=== PATIENT | female | born 1935 | race Caucasian/White ===

== ENCOUNTER 2020-12-30 18:03 | Inpatient (IN) | payer MEDICARE, BC ==
[~2020-12-30] VITALS: Ht 157.5 cm; Wt 41.3 kg
[2020-12-30] MEDS ORDERED: ELIQUIS (18:11)
[2020-12-30 18:48] LABS: HEMATOCRIT 31.6 % (31.2-41.9); MEAN CORPUSCULAR HEMOGLOBIN 34.3 uug (24.7-32.8); MEAN CORPUSCULAR VOLUME 101.3 fL (75.5-95.3); PLATELET COUNT (AUTO) 126 K/uL (179-408)
[2020-12-30 18:52] LABS: CARBON DIOXIDE 26 mmol/L (21-32); CHLORIDE 107 mmol/L (98-107); GLUCOSE 101 mg/dL (74-106); POTASSIUM 4.1 mmol/L (3.5-5.1); UREA NITROGEN, BLOOD 53 mg/dL (7-18)
--- NOTE | 2020-12-30 18:53 | NUR ---
Pending MD's evaluation@this time, the blood was drawn by lab mixer attendant. EKG done, patient is on continuous cardiac, BP & Spo2 monitors with alarms set, on & audible. Received patient AOx3, MCGUIRE, respiration:easy, denies chest pains, skin warm & dry. Comfort and safety measures maintained.
[2020-12-30 19:09] LABS: ALANINE AMINOTRANSFERASE 22 U/L (14-59); ALKALINE PHOSPHATASE 68 U/L (50-136); ASPARTATE AMINOTRANSFERASE 28 U/L (15-37); BILIRUBIN,DIRECT < 0.1 mg/dL (0.0-0.2); BILIRUBIN,TOTAL 0.4 mg/dL (0.2-1.0); TOTAL PROTEIN, SERUM 6.4 g/dL (6.4-8.2)
--- NOTE | 2020-12-30 19:09 | NUR ---
Patient moved to room 1A from room 2A per foam charger Adrian, still for MD's evaluation.
--- NOTE | 2020-12-30 19:14 | NUR ---
FRANCOISAR to drying and winding supervisor Adrian.
[2020-12-30] MEDS ORDERED: ASPIRIN 81 MG TAB.CHEW PO ONE (21:15)
--- NOTE | 2020-12-30 21:20 | NUR ---
Dr Srivastava speaking with Janeth Vital APPEALS REFEREE jump iron machine presser for [facility].
[2020-12-30] MEDS ORDERED: ACETAMINOPHEN 325 MG TABLET PO PRN (21:30)
[2020-12-30] MEDS ORDERED: MAGNESIUM HYDROXIDE 30 ML LIQUID UDC PO PRN (21:30)
[2020-12-30] MEDS ORDERED: Z GUARD REMEDY PASTE 57 GM TUBE TOP PRN (21:30)
[2020-12-30] MEDS ORDERED: ONDANSETRON 4 MG/2 ML VIAL IV PRN (21:30)
--- NOTE | 2020-12-30 21:40 | NUR ---
Janeth Vital LIVESTOCK COUNTER here to eval patient.
--- NOTE | 2020-12-30 22:42 | NUR ---
Transfered to 3rd floor via gurny with no distress noted.
--- NOTE | 2020-12-30 22:45 | NUR ---
ADMITTED TELE PATIENT FROM ER VIA WHEELCHAIR. REPORT GIVEN BY BRUCE. PATIENT IS ALERT/ORIENTEDX4, PATIENT IS AMBULATORY WITH STANDBY ASSIST FOR SAFETY. HEPLOCK NOTED TO THE RIGHT FOREARM, FLUSHED AND INTACT. SHE IS SINUS RHYTHM ON THE MONITOR. SKIN INTACT UPON INITIAL ASSESSMENT. PACEMAKER TO THE LEFT UPPER CHEST WAS PLACED ON 12/25/2020, PHOTO TAKEN AND IN THE CHART. DENIES PAIN AND DISCOMFORT. BELONGINGS LIST CHECKED AND SIGNED. ORIENTED PATIENT TO THE ROOM AND CALL LIGHT. KEPT HOB ELEVATED FOR COMFORT. NO DISTRESS IDENTIFIED. WILL CONTINUE TO MONITOR.
[2020-12-30 22:50] VITALS: BP_SYST 169; BP_DIAS 8; BP_DIAS 81
[2020-12-30 23:18] VITALS: BP 146/74
[2020-12-31] VITALS: BP 138/74
[2020-12-31 03:19] LABS: HEMATOCRIT 29.9 % (31.2-41.9); MEAN CORPUSCULAR HEMOGLOBIN 34.6 uug (24.7-32.8); MEAN CORPUSCULAR VOLUME 100.3 fL (75.5-95.3); PLATELET COUNT (AUTO) 113 K/uL (179-408)
[2020-12-31 03:23] LABS: CARBON DIOXIDE 27 mmol/L (21-32); CHLORIDE 110 mmol/L (98-107); CREATININE 1.9 mg/dL (0.6-1.3); GLUCOSE 89 mg/dL (74-106); MAGNESIUM 2.1 mg/dL (1.8-2.4); PHOSPHOROUS 3.7 mg/dL (2.5-4.9); POTASSIUM 3.5 mmol/L (3.5-5.1); UREA NITROGEN, BLOOD 52 mg/dL (7-18)
--- NOTE | 2020-12-31 03:45 | NUR ---
REPORT GIVEN BY RICH FROM THE LAB, STATED PATIENT TROPONIN IS 1.678. INFORMED DANIELLE RIVERA. WILL CONTINUE TO MONITOR PATIENT.
[2020-12-31 04:10] VITALS: BP 137/67
--- NOTE | 2020-12-31 06:53 | NUR ---
PATIENT DENIES DISCOMFORT. ALL DUE MEDS GIVEN ORDERED. ALL NEEDS ATTENDED. PROVIDED QUIET TIME DURING THE NIGHT. KEPT THE CALL LIGHT WITHIN REACH. FREQUENT CHECKS DONE. WILL ENDORSE TO THE NEXT SHIFT FOR CONTINUITY OF CARE.
--- NOTE | 2020-12-31 07:30 | NUR ---
received patient laying in bed in no distress. currently on tele, sinus rhythm. v/s wnl at this time. on r.a with rr even and non-labored, 0 episode o sob. heplock to right f.a in place and patient, heplocked. reminded patient to use call light for assistance.
[2020-12-31] MEDS: APIXABAN 2.5 MG TABLET PO SCH ×2 (09:39→20:32)
--- NOTE | 2020-12-31 10:00 | NUR ---
DTR at bed side asking to speak to STAFF PHYSICAL THERAPY ASSISTANT Janeth, daughter brought in remainder of medications, medications reconciled, notified Janeth that family wanted to speak to her.
[2020-12-31 10:48] VITALS: BP 141/57
--- NOTE | 2020-12-31 10:55 | NUR ---
seen by Janeth AGOSTO
[2020-12-31 11:51] VITALS: BP 155/75
[2020-12-31] MEDS ORDERED: METO25TA6 PO (12:00)
[2020-12-31] MEDS ORDERED: MEMA10TA PO (12:00)
[2020-12-31] MEDS ORDERED: FURO40TA5 PO (12:00)
[2020-12-31] MEDS ORDERED: ALBUTEROL SULFATE 2.5 MG/3 ML NEBU NEB PRN (12:45)
[2020-12-31] MEDS ORDERED: ALBUTEROL SULFATE 8 GM HFA.AER.AD IH PRN (12:45)
[2020-12-31] MEDS ORDERED: FUROSEMIDE 40 MG TABLET PO SCH (13:00)
[2020-12-31] MEDS: MEMANTINE HCL 10 MG TABLET PO SCH ×2 (13:35→17:49)
[2020-12-31] MEDS: METOPROLOL TARTRATE 25 MG TABLET PO SCH ×2 (13:41→20:30)
[2020-12-31] MEDS: FUROSEMIDE 20 MG TABLET PO SCH (14:22)
[2020-12-31 15:49] VITALS: BP 136/68
--- NOTE | 2020-12-31 19:00 | NUR ---
RECEIVED PATIENT AWAKE. DENIES PAIN OR DISCOMFORT. SHE IS ALERT/ORIENTED. HEPLOCK IS INTACT AND PATENT OT THE RIGHT FOREARM. KEPT CALL LIGHT WITHIN REACH. WILL CONTINUE TO MONITOR.
[2020-12-31 20:19] VITALS: BP 151/75
[2021-01-01 00:23] VITALS: BP 145/68
[2021-01-01 04:00] VITALS: BP 162/82
--- NOTE | 2021-01-01 04:19 | NUR ---
PATIENT IS NOTED WITH ELEVATED BP, LEFT ARM 162/82 mmHg RIGHT ARM 159/90 mmHg. DANIELLE RIVERA MADE AWARE. Addendum: 01/01/21 at 0448 by MOR Smita BRIGGS RN ACTIVE DIRECTORY SYSTEMS ADMINISTRATOR ORDERED HYDRALAZINE 10MG IV Q6HR PRN SBP GREATER THAN 160. Addendum: 01/01/21 at 0556 by MOR BRIGGS RN BP IMPROVED 146/68 mmHg after Hydralazine PRN administration. Will continue to monitor.
[2021-01-01] MEDS ORDERED: hydrALAZINE HCL 20 MG/1 ML VIAL IV PRN (04:45)
--- NOTE | 2021-01-01 06:25 | NUR ---
KEPT PATIENT COMFORTABLE DURING THE SHIFT. REQUESTED PAIN MEDICATION TOWARDS THE END OF THE SHIFT FOR HEADACHE. ALL NEEDS ATTENDED. PROVIDED QUIET TIME DURING THE NIGHT. WILL ENDORSE TO THE NEXT SHIFT.
--- NOTE | 2021-01-01 07:49 | NUR ---
received patient laying in bed awake in no apparent distress at this time. resident on r/a at this time, rr even and non-labored, 0 episode of sob at this time. resident remains on tele, denies any chest pain. patient denies any pain. reminded to use call light for help. side rails up x2, call light within reach.
[2021-01-01 08:26] VITALS: BP 133/52
[2021-01-01] MEDS: FUROSEMIDE 20 MG TABLET PO SCH (08:34)
[2021-01-01] MEDS: METOPROLOL TARTRATE 25 MG TABLET PO SCH (08:34)
[2021-01-01] MEDS: MEMANTINE HCL 10 MG TABLET PO SCH ×2 (08:34→16:32)
[2021-01-01] MEDS: APIXABAN 2.5 MG TABLET PO SCH (08:35)
[2021-01-01] MEDS ORDERED: CALCIUM CARB/VITAMIN D 500MG-200UNITS TABLET PO SCH (11:00)
[2021-01-01 11:18] VITALS: BP 114/48
--- NOTE | 2021-01-01 12:09 | NUR ---
Reached out to Dr. Vesna allison.
[2021-01-01] MEDS: ENSURE CLEAR 240 ML LIQUID (MIX BERRY) PO SCH ×2 (12:32→16:33)
--- NOTE | 2021-01-01 12:41 | NUR ---
Received confirmation from Dr. Malagon that he will be in unit within an hour, family made aware.
[2021-01-01] MEDS ORDERED: ALBU2.5V7 NEB (15:01)
[2021-01-01] MEDS ORDERED: BUDE10.22 INH (15:01)
[2021-01-01] MEDS ORDERED: FURO20TA4 PO (15:01)
[2021-01-01] MEDS ORDERED: CALC-261 PO (15:01)
[2021-01-01 15:15] VITALS: BP 131/62
--- NOTE | 2021-01-01 16:07 | NUR ---
Received order to discharge patient, discharge packet complete, patient informed and all information relayed to patient, patient states understanding. Patients belonging list was signed. Patient is alert and oriented x4 at this time, able to move all extremities, no c/o pain. No c/o chest pain or discomfort. Respirations even and non-labored, currently on r.a and tolerating well. vital signs at this time Bp:133/52 P:69, RR: 18, t: 98.1, spo2 96%on r.a, pain: 0/10. Patients daughter Yary will molded goods spot picker patient, will call when on her way.
--- NOTE | 2021-01-01 16:53 | NUR ---
Daughter in unit, patient taken to car, in no apparent distress. reminded to f/u with electric motor winder within a week, per daughter she has an appointment on monday and reminded to return to nearest er if symptoms worsen or call 911. Both daughter and patient expressed understanding.
== END 2021-01-01 15:30 | disposition home or self-care (01) | DRG 281 ==
LOC: ER 18:03 → TELE3 22:34
PROVIDERS: ADMIT Nurse Practitioner Acute Care; ATTEND Nurse Practitioner Acute Care
DX: I21.4 Non-ST elevation (NSTEMI) myocardial infarction (principal); Q60.0 Renal agenesis, unilateral; J90 Pleural effusion, not elsewhere classified; I13.10 Hypertensive heart and chronic kidney disease without heart failure, with stage 1 through stage 4 chronic kidney disease, or unspecified chronic kidney disease; N18.32 Chronic kidney disease, stage 3b; E83.51 Hypocalcemia; F03.90 Unspecified dementia, unspecified severity, without behavioral disturbance, psychotic disturbance, mood disturbance, and anxiety; I48.0 Paroxysmal atrial fibrillation; Z86.73 Personal history of transient ischemic attack (TIA), and cerebral infarction without residual deficits; Z79.01 Long term (current) use of anticoagulants; Z95.0 Presence of cardiac pacemaker; Z88.2 Allergy status to sulfonamides; Z20.822 Contact with and (suspected) exposure to COVID-19; I25.10 Atherosclerotic heart disease of native coronary artery without angina pectoris; Z95.820 Peripheral vascular angioplasty status with implants and grafts; J30.2 Other seasonal allergic rhinitis
CPT/HCPCS: 36415; 70030-TC; 71045; 83735; 84100; 85025; 85730; 93005; 93307; 94664; 97161; A4663; G0378; J0360